=== PATIENT | male | born 1955 | race Caucasian/White ===

== ENCOUNTER → 2024-05-29 12:47 | Outpatient (REF) | payer MEDICARE, OTHER, SELFPAY | LOC: MRI 3T 12:47 | PROVIDERS: ATTENDING PHYSICIAN Student in an Organized Health Care Education/Training Program; FAMILY PHYSICIAN Family Medicine | DX: M25.551 Pain in right hip (principal) | CPT/HCPCS: 73721 ==

== ENCOUNTER → 2024-05-31 06:48 | Outpatient (REF) | payer MEDICARE, OTHER, SELFPAY | LOC: MRI 06:48 | PROVIDERS: ATTENDING PHYSICIAN Physician Assistant; FAMILY PHYSICIAN Family Medicine | DX: M54.16 Radiculopathy, lumbar region (principal) | CPT/HCPCS: 72148 ==

== ENCOUNTER → 2024-12-16 06:51 | Outpatient (REF) | payer MEDICARE, OTHER, SELFPAY ==
[2024-12-16] MEDS: AMINOPHYLLINE 75 MG IV (10:45)
[2024-12-16] MEDS: LEXISCAN 0.4 MG IV (10:48)
== END ==
LOC: RCS 06:51
PROVIDERS: ATTENDING PHYSICIAN Internal Medicine Cardiovascular Disease; FAMILY PHYSICIAN Family Medicine
DX: I35.1 Nonrheumatic aortic (valve) insufficiency (principal); E78.2 Mixed hyperlipidemia; I10 Essential (primary) hypertension; Z01.818 Encounter for other preprocedural examination; Z01.810 Encounter for preprocedural cardiovascular examination
CPT/HCPCS: 78452; 93017; A9500; J2785

== ENCOUNTER 2024-12-22 09:33 | Day surgery (SDC) | payer MEDICARE, OTHER, SELFPAY ==
[2024-12-22 10:05] VITALS: BP 141/98; BMI 28.3
[2024-12-22] MEDS: LOW STRENGTH ASPIRIN 324 MG PO (10:19)
[2024-12-22 10:29] LABS: Hematocrit 42.1 % (39.0-52.0); Hemoglobin 14.5 g/dL (13.0-18.0); Mean Corp Hgb Conc. 34.4 g/dL (33.0-37.0); Mean Corpuscular Hgb 28.9 pg (27.0-31.0); Mean Platelet Volume 9.6 fL (7.4-10.4); Platelet Count 252 10^3/uL (130-400); Red Blood Cell Count 5.01 10^6/uL (4.70-6.10); Red Cell Dist. Width 12.4 % (11.5-14.5); White Blood Cell Count 7.2 10^3/uL (4.8-10.8)
[2024-12-22 10:44] LABS: ALT (SGPT) 22 U/L (0-50); AST (SGOT) 20 U/L (17-59); Albumin 3.9 g/dl (3.5-5.0); Alkaline Phosphatase 54 U/L (38-126); Blood Urea Nitrogen 24 mg/dl (9-20); Calcium 9.8 mg/dl (8.4-10.2); Carbon Dioxide 30 mmol/L (22-30); Chloride 104 mmol/L (98-107); Estimated Creatinine Clearance 119 ml/min; Glucose 186 mg/dl (70-99); Potassium 4.1 mmol/L (3.5-5.1); Sodium 141 mmol/L (135-145); Total Protein 6.6 g/dl (6.3-8.2); eGFR > 60.00
--- NOTE | 2024-12-22 10:55 | PTCARENOTE ---
Dr Mendiola at pt bedside speaking to pt 's . Pt took xanax 3mg po this morning along with oxycodone 5mg this morning per pt and pt's . Dr Mendiola states he may cancel today's procedure and reschedule tomorrow with anesthesia. Dr Mendiola
consulted anesthesia to evaluate pt today. Awaiting anesthesia arrival.
--- NOTE | 2024-12-22 11:07 | PTCARENOTE ---
Dr Moreland at pt bedside speaking to pt's . Pt is sleeping at this time.
--- NOTE | 2024-12-22 11:24 | PTCARENOTE ---
Dr Moreland is discussing options with Dr Mendiola. Awaiting orders.
--- NOTE | 2024-12-22 12:42 | PTCARENOTE ---
Patient has discharge order. Patient's asked if this RN could allow them to leave [facility], although patient is still sleeping. Vital signs stable with pulse ox at 99%. Patient's stated that she felt comforable taking patient home and that
this is normal for the patient. aware that patient should take his aspirin in the morning tomorrow to prepare for his rescheduled procedure. RN will remove IV and assist patient to discharge.
== END 2024-12-22 12:43 | disposition home or self-care (01) ==
LOC: CATH 09:33
PROVIDERS: ATTENDING PHYSICIAN Internal Medicine Interventional Cardiology; FAMILY PHYSICIAN Family Medicine; OTHER PHYSICIAN Internal Medicine Cardiovascular Disease
DX: Z13.6 Encounter for screening for cardiovascular disorders (principal); Z53.09 Procedure and treatment not carried out because of other contraindication; R94.39 Abnormal result of other cardiovascular function study
CPT/HCPCS: 80053; 85027

== ENCOUNTER 2024-12-23 07:45 | Day surgery (SDC) | payer MEDICARE, OTHER, SELFPAY ==
[2024-12-23] VITALS (22 sets, daily range): BP systolic 156–215; BP diastolic 87–142; BMI 28.9
[2024-12-23] MEDS: LOW STRENGTH ASPIRIN 81 MG PO (08:52)
[2024-12-23] MEDS: XANAX 2 MG PO (08:58)
--- NOTE | 2024-12-23 12:02 | PTCARENOTE ---
dr finney anesthesia aware of pt consistantly being high and pt did not take bp meds today
[2024-12-23 12:48] LABS: ACT-LR - POC 321 Seconds (116-155)
[2024-12-23 13:10] LABS: ACT-LR - POC 253 Seconds (116-155)
[2024-12-23 13:22] LABS: ACT-LR - POC 348 Seconds (116-155)
--- NOTE | 2024-12-23 14:15 | ITS.CL.CATH ---
Artistic Director - Catheterization
Cardiac Catheterization
Procedure Report:
LEFT HEART CATH AND CORONARY INTERVENTION
Date of Procedure: December 23, 2024
Referring: Dr. Kelly Vincent
PROCEDURES:
1. Left heart catheterization with coronary and single-plane left ventriculography
2. Successful stenting of OM 3 with a 2.25 x 23 mm Xience Skypoint stent that was implanted at nominal pressures and postdilated with a 2.25 mm noncompliant balloon
3. Successful stenting of OM 2 with a 2.25 x 33 mm Xience Skypoint stent that was implanted at nominal pressures and postdilated with a 2.25 mm noncompliant balloon
INDICATION: This is a 69-year-old gentleman with a past medical history notable for hypertension, diabetes, hyperlipidemia, and needle associated PTSD. He suffers from severe back discomfort and a recent stress study was notable for a large severe
lateral infarct with francine-infarct ischemia and infarction with francine-infarction ischemia. He would like to have an extensive back surgery performed for severe back discomfort, however, given the results of the stress study he is now referred for
coronary angiography.
He was scheduled for the procedure on 12/22/2024 but presented to [facility] having taken 3 Xanax tablets and 5 mg of OxyContin. He was minimally arousable. I did not believe informed consent could be obtained in this condition. It was
clear that he would not tolerate even minimally invasive procedures without involvement of anesthesia.
He returns today. Informed consent was obtained then the patient took 2 tablets of Xanax and an IV could be placed. Anesthesia provided support throughout the entirety of the procedure.
ACCESS: Right radial artery, 6 Russian sheath
HEMODYNAMICS (mmHg):
AO (s/d, m) : 105/60, 79
LV (s/d) : 107/9
LVEDP : 18
CORONARY FINDINGS
Dominance: Right
LEFT MAIN: Cloacal short left main
LEFT ANTERIOR DESCENDING: The LAD arises normally from the left main running in the anterior interventricular groove the LAD is a large-caliber vessel with a calcified 30% stenosis in its midportion. The distal LAD has a 95% stenosis as it wraps
around the apex. The first diagonal branch arises proximally from the LAD and is subtotally occluded. The second diagonal branch has a 70% mid stenosis and is a small caliber vessel.
CIRCUMFLEX: The circumflex is a medium caliber nondominant vessel. OM1 is small. OM 2 has a long 70-80% stenosis from its origin to the mid vessel. A large collateral supplies the distal RCA and the circumflex terminates in a moderate caliber OM
3 that has a long 70% stenosis.
RIGHT CORONARY: 100% occluded in the mid vessel with faint right to right and well-developed rrof-be-swkbb collaterals
VENTRICULOGRAPHY: Left ventriculography was performed in HARDIN projection. The digital single-plane left ventricular ejection fraction is estimated at 40-45% with inferior apical and apical hypokinesis
ANGIOPLASTY PROCEDURE DETAIL: Mr. Jovel suffers from severe back discomfort and is awaiting surgical laminectomy. At the conclusion of the angiographic procedure I went and discussed the situation with his spouse. I outlined that if we proceed
with coronary stents that surgery will have to be delayed a minimum of 3 months and preferably closer to 6 months before holding clopidogrel for several days before the procedure. She was agreeable and felt that her would be able to
tolerate the discomfort for an additional 3 to 6 months. At this point we elected to proceed with percutaneous revascularization of the circumflex OM 3 and OM 2.
Intravenous heparin was administered throughout the procedure and the ACT was monitored and maintained within therapeutic limits. The origin of the circumflex was cannulated with a 6 Russian AL 2 guiding catheter and a long BMW guidewire was
advanced to the distal circumflex. Balloon predilation was performed using a 2 mm Trek balloon and was followed by placement of a 2.25 x 23 mm Xience Skypoint stent from the mid circumflex into OM 3. The stent was positioned beyond the origin of
the large well-developed circumflex collateral. The OM 3 stent was implanted at nominal pressures and postdilated to high pressures with a 2.25 mm noncompliant balloon.
A second BMW guidewire was then advanced across the high-grade proximal stenosis in OM 2. A BMW guidewire crossed the proximal to mid stenotic segment with a little luck and persistence. The tip of the wire was free engaging several sidebranch
vessels. Balloon predilation was performed with a 2.0 mm trek balloon and was followed by placement of a 2.25 x 33 mm Xience Skypoint stent that was positioned from the ostium of OM 2 into the mid vessel. The stent was implanted at nominal
pressures and postdilated with a 2.25 mm noncompliant balloon to high pressures back to the ostium of the vessel with a nice angiographic result
SEDATION: Sedation was provided by anesthesia who was present throughout the procedure
RADIATION SUMMARY: Fluoro Time (min): 20.1, Dose (mGy): 2080, DAP (Gy.cm2) : 164
CONCLUSIONS
1. 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
2. Successful stenting of OM 2 with a 2.25 x 33 mm Xience Skypoint stent
3. Successful stenting of OM 3 with a 2.25 x 22 mm Xience Skypoint stent
4. High intensity statin therapy
RECOMMENDATIONS
1. Uninterrupted dual antiplatelet therapy for minimum of 3 months and preferably closer to 6 months before laminectomy
2. Initiate high intensity statin lowering therapy
3. Guideline directed therapy for hypertension and hyperlipidemia
4. Follow-up should be arranged with Dr. Kelly Vincent
Copy to: Dr. Kelly Vincent
[2024-12-23 14:42] LABS: ACT-LR - POC > 397 Seconds (116-155)
[2024-12-23] MEDS: INDERAL 40 MG PO ×2 (14:47→22:20)
[2024-12-23] MEDS: ZESTRIL 20 MG PO ×2 (14:49→20:41)
[2024-12-23] MEDS: ORETIC 25 MG PO (14:51)
--- NOTE | 2024-12-23 15:17 | PTCARENOTE ---
pt refuses accuchek
--- NOTE | 2024-12-23 15:34 | PTCARENOTE ---
vera 3 glucose monitor is reading 154 per pts personal phone monitor
--- NOTE | 2024-12-23 16:22 | CM ---
Reviewed chart. Met with and Mrs. Orosco to review discharge plans. He states prior to admission he resides with his spouse and 28 year old daughter in a two story home with one step to enter. He states he has a full flight of steps to get to
bedroom. He states he has a full bathroom on each floor. He states prior to admission he was independent with ambulation and adls. He states he does not have any DME in the home. He states he has a prescription plan. The discharge plan is to
return home with his spouse and daughter when medically stable.
[2024-12-23] MEDS: LIPITOR 80 MG PO (17:13)
[2024-12-23] MEDS: ROXICODONE 5 MG PO ×2 (17:13→22:22)
[2024-12-23] MEDS: GLUCOTROL 20 MG PO (17:13)
[2024-12-23] MEDS: NEURONTIN 300 MG PO ×2 (17:13→20:41)
--- NOTE | 2024-12-23 19:23 | PTCARENOTE ---
Pt received from recovery area post cardiac cath done via right radial artery. radial band in place, no sign of bleeding or hematoma, removing air per protocol. Pt sleepy but arousable and oriented. Pt reports significant back discomfort which he
states is only improved with 'alot of oxycodone and nothing else'. Pt given oxycodone and repositioned with minimal improvement. Telemetry shows sinus rhythm, pt continues to be hypertensive, will monitor. Pt voiding without difficulty.
[2024-12-23] MEDS: ZETIA 10 MG PO (22:19)
[2024-12-23] MEDS: ASPIR LOW (ENTERIC COATED) 81 MG PO (22:19)
--- NOTE | 2024-12-23 22:41 | PTCARENOTE ---
Received pt at change of shift resting in bed. AAOx3, denies any chest pain or SOB. NSR on the monitor in the 80's. BP improved. Right radial site clean, dry, and intact. Educated on restrictions and reinforced. Pt c/o chronic back pain as 03/16. Oxy
given per pt request--See NOV. Fall risk precautions maintained and pt informed to call for assistance OOB. Ambulated to the bathroom with RN, steady but slow r/t pain. pt made comfortable in bed. Call nails within reach.
Pt refusing blood sugar checks. Pts own Mingo 3 says [phone].
[2024-12-24 04:20] VITALS: BP 137/85
[2024-12-24 04:45] LABS: Hematocrit 43.2 % (39.0-52.0); Hemoglobin 15.1 g/dL (13.0-18.0); Mean Corpuscular Hgb 28.9 pg (27.0-31.0); Mean Corpuscular Volume 82.8 fL (80.0-94.0); Mean Platelet Volume 9.3 fL (7.4-10.4); Platelet Count 254 10^3/uL (130-400); Red Blood Cell Count 5.22 10^6/uL (4.70-6.10); Red Cell Dist. Width 12.5 % (11.5-14.5); White Blood Cell Count 8.9 10^3/uL (4.8-10.8)
[2024-12-24 05:12] LABS: Blood Urea Nitrogen 16 mg/dl (9-20); Calcium 9.8 mg/dl (8.4-10.2); Carbon Dioxide 27 mmol/L (22-30); Chloride 105 mmol/L (98-107); Estimated Creatinine Clearance 119 ml/min; Glucose 137 mg/dl (70-99); HDL Cholesterol 43 mg/dl; LDL Cholesterol, Calculated 89 mg/dl; Potassium 3.5 mmol/L (3.5-5.1); Sodium 142 mmol/L (135-145); Total Cholesterol 179 mg/dl (50-199); Triglyceride 238 mg/dl (10-149); Very Low Density Lipoprotein 47 mg/dl (0-30); eGFR > 60.00
[2024-12-24] MEDS: NEURONTIN 400 MG PO (06:41)
--- NOTE | 2024-12-24 07:01 | W.PN.CARDCBS ---
Addendum entered and electronically signed by Zion Bradshaw MD 12/24/24 08:05:
Patient seen and examined
Agree with PA-C note and assessment
Agree with PA-C plan
Exam:
Alert orient x 3
Nonfocal neurologically
JVP 6
Cor regular no murmur
Lungs clear to station bilaterally
Abdomen soft nontender positive bowel sounds
no extremity edema
Impression:
CAD
TESTING COORDINATOR of RCA, collateralized from circ and LAD, s/p PCI of OM2 and OM3 12/23/2024HTN
HLD
DM2
Spinal stenosis
Echo 09/13/2022. EF 53%, trace MR, trace AR, aortic sclerosis without stenosis, trace TR, estimated PAP 20 mmHg
Lexiscan nuclear stress test 12/16/2024: Large, severe defect seen in the anterolateral, inferolateral, and inferior chavez which is partially reversible suggestive of infarct with francine-infarct ischemia. EF 38%
[facility] 12/23/2024: LM: Cloacal short left main. LAD: Calcified 30% stenosis in its midportion. Distal LAD has a 95% stenosis as it wraps around the apex. First diagonal branch arises proximally from the LAD and is subtotally occluded. Second
diagonal branch has a 70% mid stenosis and is a small caliber vessel. LCx: OM1 is small. OM 2 has a long 70 to 80% stenosis from the origin to mid vessel. Large collaterals supplies the distal RCA and the circumflex terminates in a moderate
caliber OM 3 that has a long 70% stenosis. RCA: 100% occluded in the mid vessel with faint right to right and well-developed left to right collaterals. Angioplasty: Successful stenting of OM 2 with a 2.25 x 33 mm Xience YUE. Successful stenting
of OM 3 with a 2.25 x 22 mm Xience YUE.
Plan:
-Had abnormal stress test as outpatient which was ordered as part or pre-op risk stratification for spine surgery. Therefore referred for cardiac catheterization.
-[facility] 12/23 as above w/ TESTING COORDINATOR of RCA and stenosis of OM2 and OM3 which were successfully stented.
-Remains stable overnight with no chest pain.
-Continue DAPT with aspirin and Plavix for minimum 3 months, preferably closer to 6 months prior to interruption for laminectomy.
-BP elevated, Continue HCTZ, lisinopril, propranolol. He will keep a home BP diary
-Continue lipitor, zetia. LDL 89. Lipitor new this admission. Does report h/o statin intolerance, but unsure which medication was tried previously.
-Continue tight DM management. A1c pending.
-Follow up has been arranged.
-OK for discharge.
Original Note:
Today's Communication / Plan
-
Continue DAPT with aspirin, plavix
Continue current BP meds, will follow at home and call if remains elevated
New to lipitor, continue zetia
Follow up arranged
OK for discharge
Impression / Plan
-
PCP: Dr. Hill
Flat Lock Machine Operator: Dr. Kelly Vincent
Impression:
CAD
TESTING COORDINATOR of RCA, collateralized from circ and LAD, s/p PCI of OM2 and OM2 12/23/2024
HTN
HLD
DM2
Spinal stenosis
Echo 09/13/2022. EF 53%, trace MR, trace AR, aortic sclerosis without stenosis, trace TR, estimated PAP 20 mmHg
Lexiscan nuclear stress test 12/16/2024: Large, severe defect seen in the anterolateral, inferolateral, and inferior chavez which is partially reversible suggestive of infarct with francine-infarct ischemia. EF 38%
[facility] 12/23/2024: LM: Cloacal short left main. LAD: Calcified 30% stenosis in its midportion. Distal LAD has a 95% stenosis as it wraps around the apex. First diagonal branch arises proximally from the LAD and is subtotally occluded. Second
diagonal branch has a 70% mid stenosis and is a small caliber vessel. LCx: OM1 is small. OM 2 has a long 70 to 80% stenosis from the origin to mid vessel. Large collaterals supplies the distal RCA and the circumflex terminates in a moderate
caliber OM 3 that has a long 70% stenosis. RCA: 100% occluded in the mid vessel with faint right to right and well-developed left to right collaterals. Angioplasty: Successful stenting of OM 2 with a 2.25 x 33 mm Xience YUE. Successful stenting
of OM 3 with a 2.25 x 22 mm Xience YUE.
Plan:
-Had abnormal stress test as outpatient which was ordered as part or pre-op risk stratification for spine surgery. Therefore referred for cardiac catheterization.
-[facility] 12/23 as above w/ TESTING COORDINATOR of RCA and stenosis of OM2 and OM3 which were successfully stented.
-Remains stable overnight with no chest pain.
-Continue DAPT with aspirin and Plavix for minimum 3 months, preferably closer to 6 months prior to interruption for laminectomy.
-BP elevated, Continue HCTZ, lisinopril, propranolol. He reports BPs are typically well controlled at home and feels they are elevated this AM due to stress/anxiety w/ needle phobia.
-He will follow at home and if they remain elevated, would consider addition of amlodipine 2.5mg daily as OP.
-Continue lipitor, zetia. LDL 89. Lipitor new this admission. Does report h/o statin intolerance, but unsure which medication was tried previously.
-Continue tight DM management. A1c pending.
-Follow up has been arranged.
-OK for discharge.
Progress Note - Flat Lock Machine Operator
Subjective
Date of Service: December 24, 2024
Feeling well. No complaints.
Objective
Labs:
12/24/24 04:31
12/24/24 04:31
Labs
Hgb 15.1 g/dL (13.0-18.0) 12/24/24 04:31
Hct 43.2 % (39.0-52.0) 12/24/24 04:31
Plt Count 254 10^3/uL (130-400) 12/24/24 04:31
Sodium 142 mmol/L (135-145) 12/24/24 04:31
Potassium 3.5 mmol/L (3.5-5.1) 12/24/24 04:31
BUN 16 mg/dl (9-20) 12/24/24 04:31
Creatinine 0.7 mg/dL (0.7-1.3) 12/24/24 04:31
Glucose 137 mg/dl (70-99) H 12/24/24 04:31
Vital Signs and I&O:
Vital Signs
Temp Pulse Resp BP Pulse Ox
97.6 F 82 18 157/87 96
12/24/24 04:20 12/23/24 22:45 12/24/24 04:20 12/23/24 22:20 12/24/24 04:20
Vital Signs
Temp Pulse Resp BP Pulse Ox
97.6 F 82 18 157/87 96
12/24/24 04:20 12/23/24 22:45 12/24/24 04:20 12/23/24 22:20 12/24/24 04:20
Intake & Output
12/22/24 12/23/24 12/24/24 12/25/24
06:59 06:59 06:59 06:59
Intake Total 1080 / 1080
Output Total 3150 / 3150
Balance -2069 /
Physical Exam
Physical Exam
GEN: No distress, awake, alert, oriented x3
HEENT: supple, anicteric, mmm
LUNGS: CTA b/l, no wheezes/rales
CV: Reg, S1/S2, no murmur
EXT: No clubbing, cyanosis, or edema
NEURO: Gross non-focal
SKIN: Warm, dry, no rash
--- NOTE | 2024-12-24 07:28 | W.DS.TRANS ---
DC Summary - Licensed Physical Therapist
-
Discharge Instructions:
Discharge Diagnosis/Procedures Angioplasty and stent x2 to Obtuse Marginal
artery
Diet Low Cholesterol,Diabetic, Carb Controlled
Driving Restrictions No driving for 24 hours
Other Services Cardiac Rehab
Instructions:
Stand-Alone Forms: DC Instructions- Cath/EP Lab
Changes to Home Medications: Yes
Discharge Medications:
DC Medications w/original date entered in [employer]
alprazolam 1 mg tablet 3 mg PO DAILYPRN PRN anxiety 06/21/17
aspirin 81 mg tablet,delayed release 81 mg PO HS Blood clot prevention/tx 06/21/17
lisinopril 20 mg tablet 20 mg PO BID Blood pressure 06/21/17
metformin 1,000 mg tablet 1,000 mg PO BID Diabetes 06/21/17
cholecalciferol (vitamin D3) 25 mcg (1,000 unit) capsule (Vitamin D3) 50 mcg PO HS Supplement 03/11/22
oxycodone 5 mg tablet 5 mg PO Q4HPRN PRN breakthrough/severe pain #15 tabs 03/13/22
Zinc 30mg 30 mg PO DAILY 12/22/24
ezetimibe 10 mg tablet (Zetia) 10 mg PO HS 12/22/24
gabapentin 300 mg capsule 300 mg PO BID@1700,2000 12/22/24
gabapentin 400 mg capsule 400 mg PO BID@0600,1200 12/22/24
hydrochlorothiazide 25 mg tablet 25 mg PO DAILY 12/22/24
magnesium 250 mg tablet 250 mg PO DAILY 12/22/24
propranolol 40 mg tablet 40 mg PO TID 12/22/24
atorvastatin 80 mg tablet 80 mg PO QPM #90 tabs 12/23/24
clopidogrel 75 mg tablet 75 mg PO DAILY #90 tabs 12/23/24
glipizide 10 mg tablet 20 mg PO BID 12/23/24
Home Medication Changes
Plavix and lipitor are new
Pending Results: No
[2024-12-24] MEDS: GLUCOTROL 20 MG PO (07:39)
[2024-12-24] MEDS: ORETIC 25 MG PO (07:40)
[2024-12-24] MEDS: ZESTRIL 20 MG PO (07:40)
[2024-12-24] MEDS: MAG-TAB SR 84 MG PO (07:40)
[2024-12-24 07:41] VITALS: BP 203/179
[2024-12-24] MEDS: INDERAL 40 MG PO (07:41)
[2024-12-24] MEDS: ROXICODONE 5 MG PO (07:41)
[2024-12-24 07:43] VITALS: BP 191/98
[2024-12-24] MEDS: PLAVIX 600 MG PO (08:30)
[2024-12-24 09:03] LABS: Glycohemoglobin (HgbA1c) 8.6 % (4.0-5.6)
--- NOTE | 2024-12-24 11:55 | PTCARENOTE ---
Pt received this am with no c/o of any chest pain or sob. Right rad site dressing dry and intact with no hematoma or bleeding. Pt discharged to home with his . Discharge instructions given and reviewed with good understanding and all questions
answered.
== END 2024-12-24 12:01 | disposition home or self-care (01) ==
LOC: CATH 07:45
PROVIDERS: Nurse Practitioner; ATTENDING PHYSICIAN Internal Medicine Interventional Cardiology; FAMILY PHYSICIAN Family Medicine; OTHER PHYSICIAN Internal Medicine Cardiovascular Disease
DX: I25.10 Atherosclerotic heart disease of native coronary artery without angina pectoris (principal); I25.82 Chronic total occlusion of coronary artery; I10 Essential (primary) hypertension; E11.9 Type 2 diabetes mellitus without complications; E78.5 Hyperlipidemia, unspecified; G89.29 Other chronic pain; M48.061 Spinal stenosis, lumbar region without neurogenic claudication; F41.9 Anxiety disorder, unspecified; F43.10 Post-traumatic stress disorder, unspecified; E66.9 Obesity, unspecified; R42 Dizziness and giddiness; Z79.84 Long term (current) use of oral hypoglycemic drugs; Z79.82 Long term (current) use of aspirin; Z79.02 Long term (current) use of antithrombotics/antiplatelets
CPT/HCPCS: 80048; 80061; 83036; 85027; 85347; 93005; 93458; C1725; C1769; C1874; C1887; C1894; C9600; C9601; Q9967

== ENCOUNTER → 2025-01-18 16:03 | Outpatient (REF) | payer MEDICARE, OTHER, SELFPAY | LOC: RCS 16:03 | PROVIDERS: ATTENDING PHYSICIAN Internal Medicine Cardiovascular Disease; FAMILY PHYSICIAN Family Medicine | DX: R94.39 Abnormal result of other cardiovascular function study (principal) | CPT/HCPCS: 93306 ==